=== PATIENT | male | born 1985 | race Caucasian/White ===

== ENCOUNTER 2021-04-18 06:10 | Emergency (ER) | payer MEDICAID ==
[2021-04-18] MEDS ORDERED: Ondansetron 4 MG/2 ML SDV IVPUSH ONE (06:13)
[2021-04-18] MEDS ORDERED: HYDROmorphone 1 MG/ML Syringe IVPUSH ONE ×2 (06:13→07:44)
[2021-04-18] MEDS ORDERED: Sodium Chloride 0.9% 1,000 ML IV ONE (06:13)
[2021-04-18] MEDS ORDERED: Iopamidol 612 MG/ML 100 ML Bottle IVPUSH ONE (06:55)
[2021-04-18 06:58] LABS: ANION GAP 15.4 mEq/L (7-13); CHLORIDE,CL 103 mmol/L (98-107); SODIUM,NA 140 mmol/L (136-145)
[2021-04-18] MEDS ORDERED: diphenhydrAMINE 50 MG/ML SDV IVPUSH ONE (07:46)
[2021-04-18] MEDS ORDERED: Ondansetron 4 MG/2 ML SDV IV ONE (07:47)
[2021-04-18] MEDS ORDERED: Piperacillin/Tazobactam 4.5 GM in Sodium Chloride 0.9% 100 ML IV ONE (07:48)
[2021-04-18 08:31] LABS: CORONAVIRUS COVID-19 NAA NEGATIVE (NEGATIVE); RESPIRATORY SYNCYTIAL VIR NAA NEGATIVE (NEGATIVE)
== END 2021-04-18 08:31 ==
LOC: DL.ED 06:10
DX: K35.30 Acute appendicitis with localized peritonitis, without perforation or gangrene (principal); R93.89 Abnormal findings on diagnostic imaging of other specified body structures; Z91.048 Other nonmedicinal substance allergy status; Z72.0 Tobacco use; Z20.822 Contact with and (suspected) exposure to COVID-19
CPT/HCPCS: 0241U; 36415; 74176; 80053; 80307; 82150; 83690; 85025; 96374; 96375; 96376; 99285; J1170; J1200; J2405; J2543; J7030; Q9967